=== PATIENT | male | born 1995 | race Asian ===

== ENCOUNTER 2017-03-30 00:50 | Emergency (ER) | payer MEDICAID ==
[2017-03-30] MEDS ORDERED: BACTRIM DS PO ONE (03:49)
--- NOTE | 2017-03-30 03:50 | Emergency Department Report ---
Abscess Boil HPI - HPI Chief Complaint: Skin/Abscess/Foreign Body Stated Complaint: ABCESS RIGHT CHECK Time Seen by Provider: 03/30/17 03:31 Duration: 2 Days Severity: Mild History: Yes Purulent Drainage, No Fever, No Pain, No Numbness, No Foreign Body , No Previous History, No Insect Bite HPI: Patient is a 22-year-old male presents to ED complaining of bump to his right cheek 2 days. Patient states he's noticed bump there for the past 2 days. Patient states yesterday it drained and had some pus discharge. She says she does not recall getting a bite from an insect. He denies fevers/chills /nondistended/abdominal pain/chest pain or any other problems Home Medications: Previous Rx's Medication Instructions Recorded Last Taken Type Ibuprofen [Motrin] 600 mg PO Q8H PRN #20 tablet 03/30/17 Unknown Rx Sulfamethoxazole/Trimethoprim 1 each PO BID #14 tablet 03/30/17 Unknown Rx [Bactrim DS TAB] ED Review of Systems ROS: Stated complaint: ABCESS RIGHT CHECK Other details as noted in HPI Constitutional: denies: chills, fever Eyes: denies: eye pain, eye discharge, vision change ENT: denies: ear pain, throat pain Respiratory: denies: cough, shortness of breath, wheezing Cardiovascular: denies: chest pain, palpitations Endocrine: no symptoms reported Gastrointestinal: denies: abdominal pain, nausea, diarrhea Genitourinary: denies: urgency, dysuria Musculoskeletal: denies: back pain, joint swelling, arthralgia Skin: denies: rash, lesions Neurological: denies: headache, weakness, paresthesias Psychiatric: denies: anxiety, depression Hematological/Lymphatic: denies: easy bleeding, easy bruising ED Past Medical Hx - Past Medical History Previous Medical History?: Yes Hx Psychiatric Treatment: Yes (schizo bipolar) - Surgical History Past Surgical History?: No - Social History Smoking Status: Current Every Day Smoker Substance Use Type: Alcohol, Marijuana - Medications Home Medications: Home Medications Medication Instructions Recorded Confirmed Last Taken Type Ibuprofen [Motrin] 600 mg PO Q8H PRN #20 tablet 03/30/17 Unknown Rx Sulfamethoxazole/Trimethoprim 1 each PO BID #14 tablet 03/30/17 Unknown Rx [Bactrim DS TAB] ED Abscess Boil Physical Exam - Exam General: Vital signs noted. No distress. Alert and acting appropriately. Front/Back of Body, Lg (Color): 1 - small 2 cm red, nontender lsesion Size: 2 cm Exam: Yes Surrounding Cellulites/Erythema, Yes Normal Circulation, No Tenderness , No Fluctuance, No Lymphangitis, No Crepitation, No Heart Murmur, No Normal Neurologic Exam ED Course Vital Signs 03/30/17 01:18 Temperature 98.5 F Pulse Rate 78 Respiratory 18 Rate Blood Pressure 125/72 O2 Sat by Pulse 100 Oximetry Critical care attestation.: If time is entered above; I have spent that time in minutes in the direct care of this critically ill patient, excluding procedure time. ED Medical Decision Making - Medical Decision Making 22-year-old male presents with cellulitis of the right cheek. ED course: Patient received Bactrim DS in the ED, warm compresses placed. Puslike drainage. stopped Wound was cleaned and sterilely draped. Discussed with the patient to change dressing daily Discussed with the patient to take antibiotics as prescribed. Discussed the continual warm compressor 3times a day. Vital signs are normal patient is not acute distress Consultation services was called for patient and his insurance healthcare consultant. ED Disposition Clinical Impression: Cellulitis of external cheek, right Disposition: [id number] TO HOME OR SELFCARE Is pt being admited?: No Does the pt Need Aspirin: No Condition: Stable Instructions: Cellulitis (ED), Acute Wound Care (ED) Additional Instructions: Make sure to follow up with the primary care physician as discussed. Take all your medications as you've been prescribed. If you have any worsening symptoms or develop new symptoms please return to ED immediately. Prescriptions: Ibuprofen [Motrin] 600 mg PO Q8H PRN #20 tablet PRN Reason: Pain Sulfamethoxazole/Trimethoprim [Bactrim DS TAB] 1 each PO BID #14 tablet Referrals: [facility] [Outside] - 3-[address] [facility] [Outside] - 3-5 Days Forms: Accompanied Note, Work/School Release Form(ED) Time of Disposition: 04:25
[2017-03-30 06:55] VITALS: BP 111/69
== END 2017-03-30 06:10 | disposition home or self-care (01) ==
LOC: ED 00:50
DX: L03.211 Cellulitis of face (principal); F31.9 Bipolar disorder, unspecified; F20.9 Schizophrenia, unspecified; F17.200 Nicotine dependence, unspecified, uncomplicated; F12.10 Cannabis abuse, uncomplicated
CPT/HCPCS: 99283